=== PATIENT | male | born 1955 | race Caucasian/White ===

== ENCOUNTER 2019-02-23 06:56 | Day surgery (SDC) | payer OTHER ==
[2019-02-23] MEDS: DICLOFENAC 0.1% 2.5 ML OPH OPER (07:39)
[2019-02-23] MEDS: TROPICAMIDE 1% 15 ML OPH OPER (07:39)
[2019-02-23] MEDS: SOD CHLORIDE 0.9% 1,000 ML IV (07:39)
[2019-02-23] MEDS: MOXIFLOXACIN 0.5% 3 ML OPH OPER (07:39)
[2019-02-23] MEDS: CYCLOPENTOLATE/PHENYLEPH 2 ML OPH OPER (07:40)
[2019-02-23 09:22] LABS: ANION GAP 12 (5-13); BLOOD UREA NITROGEN 18 mg/dl (7-20); CALCIUM 9.2 mg/dl (8.4-10.2); CARBON DIOXIDE 27 mmol/L (21-31); CHLORIDE 102 mmol/L (97-110); CREATININE 1.11 mg/dl (0.61-1.24); Estimated GFR > 60 mL/min (>60); GLUCOSE 141 mg/dl (70-220); SODIUM 141 mmol/L (135-144)
[2019-02-23] MEDS ORDERED: LIDOCAINE 4% (MPF) 5 ML INJ (09:24)
[2019-02-23] MEDS ORDERED: NA HYALURONATE/CHONDROITIN 0.5 ML SYG (09:24)
[2019-02-23] MEDS: CEFAZOLIN 1 GM INJ (09:24)
[2019-02-23] MEDS: CARBACHOL 0.01% 1.5 ML OPH INJ (09:24)
[2019-02-23] MEDS: DEXAMETHASONE 4 MG/ML 1 ML INJ (09:24)
[2019-02-23 09:26] LABS: POTASSIUM 3.4 mmol/L (3.5-5.1)
[2019-02-23] MEDS ORDERED: FENTAnyl 50 MCG/ML VIAL IV (09:30)
[2019-02-23] MEDS ORDERED: HYDROmorphONE 1 MG/5 ML IV SYRINGE IV (09:30)
[2019-02-23] MEDS ORDERED: ONDANSETRON 4 MG INJ IV (09:30)
[2019-02-23] MEDS ORDERED: DIPHENHYDRAMINE 50 MG INJ IV (09:30)
[2019-02-23] MEDS ORDERED: MEPERIDINE 25 MG INJ IV (09:30)
[2019-02-23] MEDS ORDERED: PROCHLORPERAZINE 10 MG INJ IV (09:30)
[2019-02-23] MEDS ORDERED: FENTAnyl 50 MCG/ML VIAL (09:37)
[2019-02-23] MEDS ORDERED: MIDAZOLAM 1 MG/ML 2 ML INJ (09:37)
[2019-02-23] MEDS ORDERED: LIDOCAINE 2% (SDV) 5 ML INJ (09:41)
[2019-02-23] MEDS ORDERED: PROPOFOL 20 ML (09:41)
[2019-02-23] MEDS ORDERED: OXYCODONE/ACETAMINOPHEN (5/325) TAB PO (10:00)
== END 2019-02-23 10:58 | disposition home or self-care (01) ==
LOC: SDS 06:56
DX: H25.032 Anterior subcapsular polar age-related cataract, left eye (principal); I10 Essential (primary) hypertension; E11.8 Type 2 diabetes mellitus with unspecified complications; E78.00 Pure hypercholesterolemia, unspecified; Z79.82 Long term (current) use of aspirin; Z79.02 Long term (current) use of antithrombotics/antiplatelets; Z79.4 Long term (current) use of insulin
CPT/HCPCS: 66984; 80048; 82962